=== PATIENT | male | born 1970 | race Caucasian/White ===

== ENCOUNTER 2016-05-28 03:43 | Emergency (ER) | payer OTHER ==
[~2016-05-28] VITALS: Ht 172.7 cm; Wt 103.0 kg
[~2016-05-28 03:43] MED LIST: ASCO500C PO; DULO1CAP3 PO; FISHCAP4 PO; LEVO.05 PO; LIOT50TA2 PO; METF1000 PO; MULTTAB67 PO
[2016-05-28 04:13] VITALS: BP 157/99; PULSE 100; RESP 18; TEMP 98.8; O2SAT 97
[2016-05-28] MEDS ORDERED: LURA1TAB2 PO (04:27)
[2016-05-28] MEDS ORDERED: STRA80CA PO (04:27)
[2016-05-28] MEDS ORDERED: PRAV40TA2 PO (04:27)
[2016-05-28] MEDS ORDERED: MILN50 PO (04:27)
[2016-05-28] MEDS ORDERED: LAMO100 PO (04:27)
[2016-05-28] MEDS ORDERED: MEDR4PAK PO (04:27)
[2016-05-28 05:11] LABS: AUTOMATED NEUTROPHIL # 10.6 TH/MM3 (1.8-7.7); BASOPHIL # 0.1 TH/MM3 (0-0.2); BASOPHIL % 0.6 % (0.0-2.0); EOSINOPHIL # 0.1 TH/MM3 (0-0.4); EOSINOPHIL % 0.4 % (0.0-4.0); HEMATOCRIT 46.8 % (39.0-51.0); LYMPH % 35.2 % (9.0-44.0); LYMPHOCYTE # 6.8 TH/MM3 (1.0-4.8); MEAN CELL VOLUME 85.3 FL (80.0-100.0); MEAN CORPUSCULAR HEMOGLOBIN 28.7 PG (27.0-34.0); MEAN CORPUSCULAR HGB CONC 33.7 % (32.0-36.0); MONO % 8.9 % (0.0-8.0); NEUT % 54.9 % (16.0-70.0); PLATELET COUNT 414 TH/MM3 (150-450); RED BLOOD COUNT 5.49 MIL/MM3 (4.50-5.90); RED CELL DISTRIBUTION WIDTH 13.9 % (11.6-17.2); WHITE BLOOD COUNT 19.3 TH/MM3 (4.0-11.0)
[2016-05-28 05:15] LABS: HEMO FLAGS AUTO DIFF
[2016-05-28 05:24] LABS: AMPHETAMINE, URINE NEG (NEG); BARBITURATES, URINE NEG (NEG); COCAINE, URINE NEG (NEG)
[2016-05-28] MEDS ORDERED: DIAZ10TA PO (05:30)
[2016-05-28 05:45] LABS: ALKALINE PHOSPHATASE 85 U/L (45-117); TOTAL BILIRUBIN ADULT 0.2 MG/DL (0.2-1.0)
[2016-05-28 05:46] LABS: ACETAMINOPHEN LESS THAN 2.0 MCG/ML (10.0-30.0); ALT (GPT) 57 U/L (12-78); ANION GAP 13 MEQ/L (5-15); AST (GOT) 34 U/L (15-37); BLOOD UREA NITROGEN 11 MG/DL (7-18); CHLORIDE 108 MEQ/L (98-107); GLOMERULAR FILTRATION RATE 89 ML/MIN (>89); POTASSIUM 3.6 MEQ/L (3.5-5.1); SODIUM (NA) 142 MEQ/L (136-145)
[2016-05-28] MEDS ORDERED: IBUPROFEN 600 MG TAB PO ONE (06:00)
[2016-05-28] MEDS ORDERED: diphenhydrAMINE HCL 50 MG CAP PO ONE (06:00)
--- NOTE | 2016-05-28 06:06 | PD ---
HPI Chief Complaint: Psychiatric Symptoms Time Seen by Provider: 05:56 Travel History International Travel<30 days: No Contact w/Intl Traveler<30days: No Traveled to known affect area: No History of Present Illness HPI 45-year-old white male presents to emergency department under [place] act by PD. The patient was pulled over for drinking and driving. During the traffic stop the patient stated to the officer that he was feeling depressed and he had intentions of killing himself. The patient has a history of bipolar, anxiety, diabetes, hypothyroidism and hypercholesterolemia. He has had ECT several times in the past. The patient states that he's felt increasingly depressed. His father several years ago followed by his mother passing away last week. He had been seen by his psychiatrist this past week and had a adjustment of his medications. He also has been battling upper back pain. He had seen his doctor yesterday for this as well. The patient goes on to state that when he is discharged he plans on purchasing a handgun and shooting himself. He denies any homicidal ideation. He states that he drank tonight because it makes her feel better. He states that alcohol seems to be 1 of the only things that helps him feel less depressed. He has recently been prescribed Valium. He states actually he has been doubling up on the dose and still does not feel like his helping. He denies any toxic ingestions. No recent illness other than his upper back pain PFSH Past Medical History Narrative Medical Bipolar, anxiety, diabetes, hypothyroidism, hypercholesterolemia Autoimmune Disease: No Bipolar Disorder: Yes Anxiety: Yes Depression: Yes Cancer: No Cardiovascular Problems: No High Cholesterol: Yes Diabetes: Yes Patient Takes Glucophage: Yes Diminished Hearing: No Endocrine: Yes Genitourinary: No Hepatitis: No Hiatal Hernia: No Immune Disorder: No Musculoskeletal: No Neurologic: No Psychiatric: Yes (DEPRESSION) Reproductive: No Respiratory: Yes (SLEEP APNEA) Sickle Cell Disease: No Sleep Apnea: Yes Thyroid Disease: Yes Tetanus Vaccination: < 5 Years Past Surgical History Body Medical Devices: NONE Other Surgery: Yes (benign cyst removed from head) Social History Alcohol Use: Yes (when I feel depressed) Tobacco Use: No (never) Substance Use: No Allergies-Medications (Allergen,Severity, Reaction): Coded Allergies: Codeine (Verified Allergy, Unknown, Rash, 12/5/16) intramuscular route only Reported Meds & Prescriptions Reported Meds & Active Scripts Active Reported Diazepam 10 Mg Tab 15 Mg PO BID PRN Pravastatin 40 Mg Tab 40 Mg PO DAILY Strattera (Atomoxetine) 80 Mg Cap 80 Mg PO DAILY Savella (Milnacipran) 50 Mg Tab 50 Mg PO BID Latuda (Lurasidone) 60 Mg Tab 60 Mg PO HS Lamictal (Lamotrigine) 100 Mg Tab 100 Mg PO BID Medrol Dosepak (Methylprednisolone) 4 Mg Dspk 4 Mg PO DIRECTED Per Pharmacist direction Fish Oil + D3 (Fish Oil-Cholecalciferol) 1,200-1,000 Mg-Unit Cap 1 Cap PO HS Metformin (Metformin HCl) 1,000 Mg Tab 1,000 Mg PO BIDPC With meals Synthroid (Levothyroxine Sodium) 50 Mcg Tab 50 Mcg PO DAILY Multiple Vitamin 1 Tab 1 Tab PO DAILY Review of Systems Except as stated in HPI: all other systems reviewed are Neg HENT: Positive: Neck Stiffness, Neck Pain Musculoskeletal: Positive: Myalgias, Cramping, Pain, No: Arthralgias, Limited ROM, Weakness, Edema Psychiatric: Positive: Anxiety, Depression, Mood Disorder, Substance Abuse, No : Disorder of Thought, Homicidal Ideation Physical Exam Narrative GENERAL: Well-nourished, well-developed patient. SKIN: Warm and dry. HEAD: Normocephalic and atraumatic. EYES: No scleral icterus. No injection or drainage. ENT: No nasal drainage noted. Mucous membranes pink. Airway patent. NECK: Supple, trachea midline. Moves head freely without obvious discomfort. CARDIOVASCULAR: Regular rate and rhythm without murmurs, gallops, or rubs. RESPIRATORY: Breath sounds equal bilaterally. No accessory muscle use. GASTROINTESTINAL: Abdomen soft, non-tender, nondistended. EXTREMITIES: No cyanosis or edema. BACK: Nontender without obvious deformity. No CVA tenderness. Patient has right periscapular muscle tenderness and spasm. NEURO: Patient is alert and oriented. no sensorimotor deficits. Nonfocal. Normal speech. PSYCH: No delusions. No auditory or visual hallucinations. Poor coping skills. Poor insight and judgment Data Data Last Documented VS Vital Signs Date Time Temp Pulse Resp B/P Pulse Ox O2 Delivery O2 Flow Rate FiO2 05/28/16 04:13 98.8 100 18 157/99 97 Orders Complete Blood Count With Diff (05/28/16 04:23) Comprehensive Metabolic Panel (05/28/16 04:23) Psych Screen (05/28/16 04:23) Drug Screen, Random Urine (05/28/16 04:23) Alcohol (Ethanol) (05/28/16 04:23) Salicylates (Aspirin) (05/28/16 04:23) Tylenol (Acetaminophen) (05/28/16 04:23) Ibuprofen (Motrin) (05/28/16 06:00) Diphenhydramine (Benadryl) (05/28/16 06:00) Labs Laboratory Tests Test 05/28/16 04:55 White Blood Count 19.3 TH/MM3 Red Blood Count 5.49 MIL/MM3 Hemoglobin 15.8 GM/DL Hematocrit 46.8 % Mean Corpuscular Volume 85.3 FL Mean Corpuscular Hemoglobin 28.7 PG Mean Corpuscular Hemoglobin 33.7 % Concent Red Cell Distribution Width 13.9 % Platelet Count 414 TH/MM3 Mean Platelet Volume 7.5 FL Neutrophils (%) (Auto) 54.9 % Lymphocytes (%) (Auto) 35.2 % Monocytes (%) (Auto) 8.9 % Eosinophils (%) (Auto) 0.4 % Basophils (%) (Auto) 0.6 % Neutrophils # (Auto) 10.6 TH/MM3 Lymphocytes # (Auto) 6.8 TH/MM3 Monocytes # (Auto) 1.7 TH/MM3 Eosinophils # (Auto) 0.1 TH/MM3 Basophils # (Auto) 0.1 TH/MM3 CBC Comment AUTO DIFF Sodium Level 142 MEQ/L Potassium Level 3.6 MEQ/L Chloride Level 108 MEQ/L Carbon Dioxide Level 21.0 MEQ/L Anion Gap 13 MEQ/L Blood Urea Nitrogen 11 MG/DL Creatinine 0.92 MG/DL Estimat Glomerular Filtration 89 ML/MIN Rate Random Glucose 114 MG/DL Calcium Level 8.8 MG/DL Total Bilirubin 0.2 MG/DL Aspartate Amino Transf 34 U/L (AST/SGOT) Alanine Aminotransferase 57 U/L (ALT/SGPT) Alkaline Phosphatase 85 U/L Total Protein 8.5 GM/DL Albumin 4.2 GM/DL Salicylates Level 2.2 MG/DL Urine Opiates Screen NEG Acetaminophen Level LESS THAN 2.0 MCG/ML Urine Barbiturates Screen NEG Urine Amphetamines Screen NEG Urine Benzodiazepines Screen POS Urine Cocaine Screen NEG Urine Cannabinoids Screen NEG Ethyl Alcohol Level 33 MG/DL MDM Medical Decision Making Medical Screen Exam Complete: Yes Emergency Medical Condition: Yes Medical Record Reviewed: Yes Interpretation(s) Laboratory Tests Test 05/28/16 04:55 White Blood Count 19.3 TH/MM3 Red Blood Count 5.49 MIL/MM3 Hemoglobin 15.8 GM/DL Hematocrit 46.8 % Mean Corpuscular Volume 85.3 FL Mean Corpuscular Hemoglobin 28.7 PG Mean Corpuscular Hemoglobin 33.7 % Concent Red Cell Distribution Width 13.9 % Platelet Count 414 TH/MM3 Mean Platelet Volume 7.5 FL Neutrophils (%) (Auto) 54.9 % Lymphocytes (%) (Auto) 35.2 % Monocytes (%) (Auto) 8.9 % Eosinophils (%) (Auto) 0.4 % Basophils (%) (Auto) 0.6 % Neutrophils # (Auto) 10.6 TH/MM3 Lymphocytes # (Auto) 6.8 TH/MM3 Monocytes # (Auto) 1.7 TH/MM3 Eosinophils # (Auto) 0.1 TH/MM3 Basophils # (Auto) 0.1 TH/MM3 CBC Comment AUTO DIFF Sodium Level 142 MEQ/L Potassium Level 3.6 MEQ/L Chloride Level 108 MEQ/L Carbon Dioxide Level 21.0 MEQ/L Anion Gap 13 MEQ/L Blood Urea Nitrogen 11 MG/DL Creatinine 0.92 MG/DL Estimat Glomerular Filtration 89 ML/MIN Rate Random Glucose 114 MG/DL Calcium Level 8.8 MG/DL Total Bilirubin 0.2 MG/DL Aspartate Amino Transf 34 U/L (AST/SGOT) Alanine Aminotransferase 57 U/L (ALT/SGPT) Alkaline Phosphatase 85 U/L Total Protein 8.5 GM/DL Albumin 4.2 GM/DL Salicylates Level 2.2 MG/DL Urine Opiates Screen NEG Acetaminophen Level LESS THAN 2.0 MCG/ML Urine Barbiturates Screen NEG Urine Amphetamines Screen NEG Urine Benzodiazepines Screen POS Urine Cocaine Screen NEG Urine Cannabinoids Screen NEG Ethyl Alcohol Level 33 MG/DL Differential Diagnosis MDM: High Differential diagnoses: Schizophrenia, schizoaffective disorder, bipolar, anxiety, depression, adjustment reaction, mood disorder NOS, ODD, depressive disorder NOS, dementia, dementia with agitation, psychosis NOS, substance induced mood disorder, intermittent explosive disorder, Asperger syndrome, infection,electrolyte abnormality, malingering. Narrative Course Mental health screening discussed with the patient. Psychiatric screen ordered. The patient been medically cleared. The patient has requested something for his anxiety and right upper back pain and spasm. He is given Motrin 600 mg and Benadryl 50 mg by mouth. I explained to the patient that I do not want to give him any additional mind altering medications because the psychiatrist will begin his morning to see him. I will like him to be lucid for his history and exam. This is bipolar-depressed, back spasms, intoxication Diagnosis Primary Impression: Bipolar affect, depressed Qualified Code: F31.4 - Bipolar disorder, current episode depressed, severe, without psychotic features Additional Impressions: Back muscle spasm Intoxication by drug Qualified Code: F19.929 - Intoxication by drug, with unspecified complication Condition: Stable Ra Grimaldo May 28, 2016 06:06
[2016-05-28 06:42] LABS: PLATELET ESTIMATE SMEAR NORMAL (NORMAL); PLATELET MORPHOLOGY NORMAL (NORMAL); SCAN/DIFF AUTO DIFF CONFIRMED
[2016-05-28 08:11] VITALS: BP 128/78; PULSE 86; RESP 18; O2SAT 99
--- NOTE | 2016-05-28 10:49 | PD.CONS ---
Provisional Diagnosis Admission Date Ronks I. Alcohol-induced mood disorder, alcohol use disorder, history of bipolar disorder Ronks II. Deferred Ronks III. DM, sleep apnea Ronks IV. Mother recently Ronks V. 55 History of Present Illness Service Psychiatry Consult Requested By Primary Care Physician Non-Staff HPI The patient is a 45-year-old man, domiciled alone in [place], unemployed, supported by [facility], never , with psychiatric history of bipolar disorder, 2 previous psychiatric hospitalizations, he was seen here at [facility] in 2011 for adjustment disorder, no previous suicidal attempts, he has been getting ECT before, he sees outpatient psychiatrist Dr. Craig in [facility], he is on Latuda 60 mg, Lamictal 100 mg twice a day, diazepam 50 mg, he has medical history of diabetes mellitus, hypothyroidism, who presents to emergency department under [place] act by PD. The patient was pulled over for drinking and driving. As per [place] act, During the traffic stop the patient stated to the officer that he was feeling depressed and he had intentions of killing himself. The patient states that he's felt increasingly depressed. His father several years ago followed by his mother passing away last week. Initial BAL was 33, patient was also positive for benzodiazepines. On psychiatric evaluation this morning patient is calm, cooperative and pleasant , clinically sober. Patient explains that last night he was drinking some alcohol with some friends and he decided to drive back home and was caught by police. Patient says that he has been feeling depressed secondary to his mother about week ago, but he reports good mood at this moment. Patient denies suicidal or homicidal ideation, he denies visual and auditory hallucinations. Patient has a extensive history of dealing with depression, he says that he has 3 courses of ECT in [place], but they have been ineffective. He said he has been compliant and is stable with current psychotropic regimen. He sees Dr. Craig once a month, the last that his son was last . Patient reports taking alcohol socially, one or 2 times per month, getting drunk is in usual for him. He denies the use of illegal drugs. Patient is fully oriented 3, no agitation, no aggressive behavior, no paranoia , no delusions are observed or reported. Review of Systems Constitutional: DENIES: Diaphoretic episodes, Fatigue, Fever, Weight gain, Weight loss, Chills, Dizziness, Change in appetite, Night Sweats Endocrine: DENIES: Heat/cold intolerance, Polydipsia, Polyuria, Polyphagia Eyes: DENIES: Blurred vision, Diplopia, Eye inflammation, Eye pain, Vision loss , Photosensitivity, Double Vision Ears, nose, mouth, throat: DENIES: Tinnitus, Hearing loss, Vertigo, Nasal discharge, Oral lesions, Throat pain, Hoarseness, Ear Pain, Running Nose, Epistaxis, Sinus Pain, Toothache, Odynophagia Respiratory: DENIES: Apneas, Cough, Snoring, Wheezing, Hemoptysis, Sputum production, Shortness of breath Cardiovascular: DENIES: Chest pain, Palpitations, Syncope, Dyspnea on Exertion , PND, Lower Extremity Edema, Orthopnea, Claudication Gastrointestinal: DENIES: Abdominal pain, Black stools, Bloody stools, Constipation, Diarrhea, Nausea, Vomiting, Difficulty Swallowing, Anorexia Integumentary: DENIES: Abnormal pigmentation, Nail changes, Pruritus, Rash Immunologic/allergic: DENIES: Eczema, Urticaria Neurologic: DENIES: Abnormal gait, Headache, Localized weakness, Paresthesias, Seizures, Speech Problems, Tremor, Poor Balance Psychiatric: DENIES: Anxiety, Confusion, Mood changes, Depression, Hallucinations, Agitation, Suicidal Ideation, Homicidal Ideation, Delusions Past Family Social History Coded Allergies: Codeine (Verified Allergy, Unknown, Rash, 01/18/16) intramuscular route only Reported Medications Diazepam 10 Mg Tab15 Mg PO BID PRN (ANXIETY) Ref 0 05/28/16 Pravastatin 40 Mg Tab40 Mg PO DAILY #30 TAB Ref 0 05/28/16 Atomoxetine (Strattera)80 Mg Cap80 Mg PO DAILY #30 CAP Ref 0 05/28/16 Milnacipran (Savella)50 Mg Tab50 Mg PO BID #60 TAB Ref 0 05/28/16 Lurasidone (Latuda)60 Mg Tab60 Mg PO HS #30 TAB Ref 0 05/28/16 Lamotrigine (Lamictal)100 Mg [id number] Mg PO BID #60 TAB Ref 0 05/28/16 Methylprednisolone Dosepak (Medrol Dosepak)4 Mg Dspk4 Mg PO DIRECTED #1 DSPK Ref 0 Per Pharmacist direction 05/28/16 Fish Oil-Cholecalciferol (Fish Oil + D3)1,200-1,000 Mg-Unit Cap1 Cap PO HS #30 CAP Ref 0 01/18/16 Metformin 1,000 Mg Tab1,000 Mg PO BIDPC #60 TAB Ref 0 With meals 01/18/16 Levothyroxine (Synthroid)50 Mcg Tab50 Mcg PO DAILY #30 TAB Ref 0 01/18/16 Multiple Vitamin 1 Tab1 Tab PO DAILY Ref 0 01/18/16 Discontinued Reported Medications Ascorbic Acid (Vitamin C)500 Mg [id number] Mg PO HS Ref 0 01/18/16 Liothyronine 50 Mcg Tab50 Mcg PO DAILY #30 TAB Ref 0 01/18/[address] 60 Mg Capdr60 Mg PO DAILY #30 CAP Ref 0 01/18/16 Family History He denies Social History Patient was born and raised in [place], he has been living in [place] since 2007, he lives alone in [place], he never remarried, he doesn't have kids, is unemployed, supported by [facility], he has a bachelor degree Physical Exam On physical exam, no alcohol withdrawal, no EPS, no tremors, no rigidity, no stiffness, no psychomotor retardation or agitation present Vital Signs Vital Signs Date Time Temp Pulse Resp B/P Pulse Ox O2 Delivery O2 Flow Rate FiO2 05/28/16 08:11 86 18 128/78 99 Room Air 05/28/16 04:13 98.8 Lab Results BAL 33, toxicology positive for benzodiazepines Mental Status Examination Appearance Overweight man, good hygiene, in [facility], age appearing, calm , cooperative and pleasant Speech: Unremarkable Orientation: x3 Memory: Unremarkable Thought Process: Logical Hallucination Type: None Suicidal Ideation: No Previous Suicide Attempts: No Homicidal Ideation: No Previous Homicide Attempts: No Insight: Good Judgment: WNL Affect: Good Mood: Appropriate Motor Activity: Normal gait Assessment & Plan Problem List: (1) Alcohol abuse with alcohol-induced mood disorder Assessment & Plan: On psychiatric evaluation this morning the patient does not present any significant evidence of depression, anxiety, carmen or psychosis. Patient denies suicidal or homicidal ideation, he denies visual and auditory hallucinations. Patient endorses some symptoms of mild to moderate depression mostly related with recent of his mother, but he says that he has been coping okay with this. Patient is future oriented, goal directed, logical, coherent and relevant. He definitely does not meet criteria for psychiatric admission at this moment. He can continue his psychiatric care as an outpatient with Dr. Craig in [place]. Continue current psychotropics. Extensive support, motivation psycho education. Dixon act will be lifted. ICD Code: F10.14 Assessment & Plan Estimated LOS: Byron Fuentes MD May 28, 2016 10:49
== END 2016-05-28 09:39 | disposition short-term general hospital (02) ==
LOC: NEPD 03:43
DX: F31.4 Bipolar disorder, current episode depressed, severe, without psychotic features (principal); M62.830 Muscle spasm of back; F19.929 Other psychoactive substance use, unspecified with intoxication, unspecified; F10.14 Alcohol abuse with alcohol-induced mood disorder; E11.9 Type 2 diabetes mellitus without complications; E03.9 Hypothyroidism, unspecified; E78.00 Pure hypercholesterolemia, unspecified; G47.30 Sleep apnea, unspecified; Z79.84 Long term (current) use of oral hypoglycemic drugs; Z86.59 Personal history of other mental and behavioral disorders
CPT/HCPCS: 80053; 80307; 85025; 99285; Q0163

== ENCOUNTER 2016-08-17 15:28 | Emergency (ER) | payer OTHER ==
[~2016-08-17 15:28] MED LIST changes: -ASCO500C PO; +DIAZ10TA PO; -DULO1CAP3 PO; +LAMO100 PO; -LIOT50TA2 PO; +LURA1TAB2 PO; +MEDR4PAK PO; +MILN50 PO; +PRAV40TA2 PO; +STRA80CA PO
--- NOTE | 2016-08-17 15:37 | PD ---
Physical Exam Time Seen by Provider: 15:37 Narrative Pt presents to the ED for evaluation of anxiety. States he was here at the hospital for a depression support group. States he has had SI over the past several days but has made no attempts to harm himself. Denies HI. States he has been taking xanax until he ran out and took an old prescription of diazepam yesterday. VSS. Awaiting bed placement. MDM Supervised Visit with PHIL: Roseanna Eli Aug 17, 2016 15:37
[2016-08-17 15:47] VITALS: BP 130/79; PULSE 97; RESP 20; TEMP 98; O2SAT 99
[2016-08-17 17:04] VITALS: BP 121/70; PULSE 91; RESP 18; O2SAT 100
[2016-08-17] MEDS ORDERED: LAMO100 PO (17:20)
[2016-08-17] MEDS ORDERED: LORazepam 1 MG TAB PO PRN (17:30)
[2016-08-17] MEDS ORDERED: LORazepam 2 MG TAB PO PRN (17:30)
[2016-08-17] MEDS ORDERED: LORazepam 2 MG/ML VIAL IV PUSH PRN ×4 (17:30)
[2016-08-17] MEDS ORDERED: FLUMAZENIL 0.5 MG/5 ML VIAL IV PUSH PRN (17:30)
[2016-08-17 18:04] LABS: BASOPHIL # 0.1 TH/MM3 (0-0.2); BASOPHIL % 1.2 % (0.0-2.0); EOSINOPHIL # 0.2 TH/MM3 (0-0.4); EOSINOPHIL % 2.2 % (0.0-4.0); HEMATOCRIT 46.2 % (39.0-51.0); HEMO FLAGS DIFF FINAL; LYMPH % 44.3 % (9.0-44.0); LYMPHOCYTE # 4.5 TH/MM3 (1.0-4.8); MEAN CELL VOLUME 85.4 FL (80.0-100.0); MEAN CORPUSCULAR HEMOGLOBIN 27.8 PG (27.0-34.0); MEAN CORPUSCULAR HGB CONC 32.5 % (32.0-36.0); MONO % 12.6 % (0.0-8.0); NEUT % 39.7 % (16.0-70.0); PLATELET COUNT 423 TH/MM3 (150-450); RED BLOOD COUNT 5.41 MIL/MM3 (4.50-5.90); RED CELL DISTRIBUTION WIDTH 13.7 % (11.6-17.2)
[2016-08-17 18:06] VITALS: BP 119/72; PULSE 84; RESP 18; O2SAT 100
[2016-08-17 18:26] LABS: ANION GAP 15 MEQ/L (5-15); AST (GOT) 31 U/L (15-37); BICARBONATE 18.7 MEQ/L (21.0-32.0); BLOOD UREA NITROGEN 16 MG/DL (7-18); CHLORIDE 103 MEQ/L (98-107); GLOMERULAR FILTRATION RATE 57 ML/MIN (>89); POTASSIUM 3.2 MEQ/L (3.5-5.1); SODIUM (NA) 137 MEQ/L (136-145)
[2016-08-17 18:27] LABS: ALT (GPT) 70 U/L (12-78)
[2016-08-17 18:29] LABS: ALKALINE PHOSPHATASE 103 U/L (45-117); TOTAL BILIRUBIN ADULT 0.3 MG/DL (0.2-1.0)
--- NOTE | 2016-08-17 18:31 | PD ---
HPI Chief Complaint: Anxiety Time Seen by Provider: 18:00 Travel History International Travel<30 days: No Contact w/Intl Traveler<30days: No Traveled to known affect area: No History of Present Illness HPI Patient is a 46-year-old male presenting voluntarily to the emergency department for psychiatric evaluation. Patient states that he is on Xanax for anxiety, he ran out a few days ago so he has been using Valium that he had left over. He reports being at a meeting this afternoon and approximately 2:45p when he developed this overwhelming sense of anxiety. Patient reports a history of panic attacks, he states that he feels similar to his previous attacks. He denies any nausea, vomiting, shortness of breath, palpitations. Denies any suicidal or homicidal ideations, he reports a history of type 2 diabetes, bipolar 2 disorder. PFSH Past Medical History AAA: No ADD: No ADHD: No Alzheimer's Disease: No Anemia: No Arthritis: No Asthma: No Atrial Fibrillation: No Autoimmune Disease: No Blood Disorders: No Bipolar Disorder: Yes Anxiety: Yes Depression: Yes Heart Rhythm Problems: No Cancer: No Cardiac Catheterization: No Cardiomyopathy: No Cardiovascular Problems: No Cerebral Palsy: No High Cholesterol: No Chemotherapy: No Chest Pain: No Congestive Heart Failure: No Cirrhosis: No COPD: No Cerebrovascular Accident: No Coronary Artery Disease: No Cystic Fibrosis: No Dementia: No Developmental Delay: No Diabetes: Yes Patient Takes Glucophage: Yes (METFORMIN 1000MG TWICE A DAY) Dialysis: No Diminished Hearing: No Diverticulitis: No Deep Vein Thrombosis: No Endocrine: No Fibromyalgia: No Gastrointestinal Disorders: No Genetic Disorder: No GERD: No Glaucoma: No Gout: No Genitourinary: No Headaches: No Hepatitis: No Hiatal Hernia: No Heparin Induced Thrombocytopen: No Herniated Disk: No Hypertension: No Immune Disorder: No Inguinal Hernia: No Implanted Vascular Access Dvce: No Insomnia: No Kidney Stones: No Medical other: No Musculoskeletal: No Neurologic: No Parkinson's Disease: No Psychiatric: No Reproductive: No Respiratory: No Resp. Syncytial Virus (RSV): No Integumentary: No Immunizations Current: No Migraines: No Myocardial Infarction: No Pancreatitis: No Pneumonia: No Radiation Therapy: No Renal Failure: No Schizophrenia: No Seizures: No Shingles: No Sickle Cell Disease: No Sleep Apnea: No Thyroid Disease: No Triglycerides - High: No Ulcer: No Tetanus Vaccination: > 5 Years Influenza Vaccination: Yes Past Surgical History Abdominal Aneurysm Repair: No Abdominal Surgery: No AICD: No Appendectomy: No Arteriovenous Shunt: No Body Medical Devices: NONE Cardiac Surgery: No Cholecystectomy: No Coronary Artery Bypass Graft: No Coronary Stent: No Ear Surgery: No Endocrine Surgery: No Eye Surgery: No Genitourinary Surgery: No Gynecologic Surgery: No Insulin Pump: No Joint Replacement: No Mastectomy: No Neurologic Surgery: No Oral Surgery: No Pacemaker: No Prostatectomy: No Thoracic Surgery: No Tonsillectomy: No Tympanostomy Tube: No Valve Replacement: No Other Surgery: No Family History Family Breast Cancer: No Family Myocardial Infarction: No Family Hypercholesterolemia: No Social History Alcohol Use: No Tobacco Use: No Substance Use: No Allergies-Medications (Allergen,Severity, Reaction): Coded Allergies: Codeine (Verified Allergy, Unknown, Rash, 01/18/16) intramuscular route only Reported Meds & Prescriptions Reported Meds & Active Scripts Active Reported Xanax (Alprazolam) 0.5 Mg Tab 0.5 Mg PO Q8H PRN Lamictal (Lamotrigine) 100 Mg Tab 100 Mg PO TID Diazepam 10 Mg Tab 15 Mg PO BID PRN Pravastatin 40 Mg Tab 40 Mg PO DAILY Fish Oil + D3 (Fish Oil-Cholecalciferol) 1,200-1,000 Mg-Unit Cap 1 Cap PO HS Metformin (Metformin HCl) 1,000 Mg Tab 1,000 Mg PO BIDPC With meals Synthroid (Levothyroxine Sodium) 50 Mcg Tab 50 Mcg PO DAILY Multiple Vitamin 1 Tab 1 Tab PO DAILY Review of Systems Except as stated in HPI: all other systems reviewed are Neg Cardiovascular: Positive: Diaphoresis, No: Chest Pain or Discomfort Respiratory: No: Shortness of Breath Neurologic: No: Weakness, Dizziness Psychiatric: Positive: Anxiety, Mood Disorder Physical Exam Narrative GENERAL: Well-developed, well-nourished, alert male. SKIN: Warm and dry. Diaphoretic HEAD: Atraumatic. Normocephalic. EYES: Pupils equal and round. No scleral icterus. No injection or drainage. ENT: No nasal bleeding or discharge. Mucous membranes pink and moist. NECK: Trachea midline. No JVD. CARDIOVASCULAR: Regular rate and rhythm. RESPIRATORY: No accessory muscle use. Clear to auscultation. Breath sounds equal bilaterally. GASTROINTESTINAL: Abdomen soft, non-tender, nondistended. Hepatic and splenic margins not palpable. MUSCULOSKELETAL: Extremities without clubbing, cyanosis, or edema. No obvious deformities. NEUROLOGICAL: Awake and alert. No obvious cranial nerve deficits. Motor grossly within normal limits. Five out of 5 muscle strength in the arms and legs. Normal speech. PSYCHIATRIC: Anxious mood and affect; insight and judgment normal. Data Data Last Documented VS Vital Signs Date Time Temp Pulse Resp B/P Pulse Ox O2 Delivery O2 Flow Rate FiO2 08/17/16 18:06 84 18 119/72 100 Room Air 08/17/16 15:47 98.0 Orders Psych Screen (08/17/16 16:42) Complete Blood Count With Diff (08/17/16 17:12) Comprehensive Metabolic Panel (08/17/16 17:12) Drug Screen, Random Urine (08/17/16 17:12) Diet Regular Basic (08/17/16 Dinner) Alcohol Withdrawal Asmt-Ciwa ONCE (08/17/16 17:27) Flumazenil Inj (Romazicon Inj) (08/17/16 17:30) Lorazepam (Ativan) (08/17/16 17:30) Lorazepam Inj (Ativan Inj) (08/17/16 17:30) Lorazepam (Ativan) (08/17/16 17:30) Lorazepam Inj (Ativan Inj) (08/17/16 17:30) Lorazepam Inj (Ativan Inj) (08/17/16 17:30) Lorazepam Inj (Ativan Inj) (08/17/16 17:30) Potassium Chloride (Kcl) (08/17/16 19:30) Electrocardiogram (08/17/16 15:35) Labs Laboratory Tests Test 08/17/16 08/17/16 08/17/16 17:30 17:38 20:02 Sodium Level 137 MEQ/L Potassium Level 3.2 MEQ/L Chloride Level 103 MEQ/L Carbon Dioxide Level 18.7 MEQ/L Anion Gap 15 MEQ/L Blood Urea Nitrogen 16 MG/DL Creatinine 1.34 MG/DL Estimat Glomerular Filtration 57 ML/MIN Rate Random Glucose 91 MG/DL Calcium Level 10.0 MG/DL Total Bilirubin 0.3 MG/DL Aspartate Amino Transf 31 U/L (AST/SGOT) Alanine Aminotransferase 70 U/L (ALT/SGPT) Alkaline Phosphatase 103 U/L Total Protein 8.4 GM/DL Albumin 4.2 GM/DL White Blood Count 10.0 TH/MM3 Red Blood Count 5.41 MIL/MM3 Hemoglobin 15.0 GM/DL Hematocrit 46.2 % Mean Corpuscular Volume 85.4 FL Mean Corpuscular Hemoglobin 27.8 PG Mean Corpuscular Hemoglobin 32.5 % Concent Red Cell Distribution Width 13.7 % Platelet Count 423 TH/MM3 Mean Platelet Volume 7.8 FL Neutrophils (%) (Auto) 39.7 % Lymphocytes (%) (Auto) 44.3 % Monocytes (%) (Auto) 12.6 % Eosinophils (%) (Auto) 2.2 % Basophils (%) (Auto) 1.2 % Neutrophils # (Auto) 4.0 TH/MM3 Lymphocytes # (Auto) 4.5 TH/MM3 Monocytes # (Auto) 1.3 TH/MM3 Eosinophils # (Auto) 0.2 TH/MM3 Basophils # (Auto) 0.1 TH/MM3 CBC Comment DIFF FINAL Differential Comment Urine Opiates Screen NEG Urine Barbiturates Screen NEG Urine Amphetamines Screen NEG Urine Benzodiazepines Screen POS Urine Cocaine Screen NEG Urine Cannabinoids Screen NEG MDM Medical Decision Making Medical Screen Exam Complete: Yes Emergency Medical Condition: Yes Interpretation(s) Laboratory Tests Test 08/17/16 08/17/16 17:30 17:38 Sodium Level 137 MEQ/L Potassium Level 3.2 MEQ/L Chloride Level 103 MEQ/L Carbon Dioxide Level 18.7 MEQ/L Anion Gap 15 MEQ/L Blood Urea Nitrogen 16 MG/DL Creatinine 1.34 MG/DL Estimat Glomerular Filtration 57 ML/MIN Rate Random Glucose 91 MG/DL Calcium Level 10.0 MG/DL Total Bilirubin 0.3 MG/DL Aspartate Amino Transf 31 U/L (AST/SGOT) Alanine Aminotransferase 70 U/L (ALT/SGPT) Alkaline Phosphatase 103 U/L Total Protein 8.4 GM/DL Albumin 4.2 GM/DL White Blood Count 10.0 TH/MM3 Red Blood Count 5.41 MIL/MM3 Hemoglobin 15.0 GM/DL Hematocrit 46.2 % Mean Corpuscular Volume 85.4 FL Mean Corpuscular Hemoglobin 27.8 PG Mean Corpuscular Hemoglobin 32.5 % Concent Red Cell Distribution Width 13.7 % Platelet Count 423 TH/MM3 Mean Platelet Volume 7.8 FL Neutrophils (%) (Auto) 39.7 % Lymphocytes (%) (Auto) 44.3 % Monocytes (%) (Auto) 12.6 % Eosinophils (%) (Auto) 2.2 % Basophils (%) (Auto) 1.2 % Neutrophils # (Auto) 4.0 TH/MM3 Lymphocytes # (Auto) 4.5 TH/MM3 Monocytes # (Auto) 1.3 TH/MM3 Eosinophils # (Auto) 0.2 TH/MM3 Basophils # (Auto) 0.1 TH/MM3 CBC Comment DIFF FINAL Differential Comment Vital Signs Date Time Temp Pulse Resp B/P Pulse Ox O2 Delivery O2 Flow Rate FiO2 08/17/16 18:06 84 18 119/72 100 Room Air 08/17/16 17:04 91 18 121/70 100 Room Air 08/17/16 15:47 98.0 97 20 130/79 99 Room Air Differential Diagnosis Mood disorder versus substance abuse versus anxiety versus panic disorder versus electrolyte abnormality versus other Narrative Course Patient's a 46-year-old male presenting voluntarily due to anxiety and being out of his Xanax. Per RNs in [facility] they contacted the pharmacy and patient had a medication refill available for him 3 days ago. When patient was asked why he didn't pick it up he stated that he didn't have time. Patient had been taking Xanax then he started using Valium after he ran out, it doesn't appear symptoms are related to withdrawal because he hasn't been without a benzodiazepine his symptoms today are consistent with his previous panic attacks. Mental health screening discussed with the patient. Psychiatric screen ordered. CBC is unremarkable Chemistry with potassium of 3.2, oral replacement ordered. CIWA protocol ordered per Dr. Aly Urine drug screen is positive for benzos Patient is medically cleared for psychiatric evaluation at this time. Diagnosis Primary Impression: Medical clearance for psychiatric admission Condition: Stable Alea Pappas Aug 17, 2016 18:30
[2016-08-17] MEDS ORDERED: ALPR.5 PO (18:47)
[2016-08-17] MEDS ORDERED: POTASSIUM CHLORIDE 10 MEQ CONTROLLED RELEASE TAB PO ONE (19:30)
[2016-08-17 20:43] LABS: AMPHETAMINE, URINE NEG (NEG); BARBITURATES, URINE NEG (NEG); COCAINE, URINE NEG (NEG)
--- NOTE | 2016-08-18 17:42 | EKG ---
Date Performed: 08/17/2016 Time Performed: 15:35:04 PTAGE: 46 years EKG: Sinus rhythm PROBABLE INFERIOR MYOCARDIAL INFARCTION ABNORMAL ECG NO PREVIOUS TRACING DOCTOR: Jeri Pool Interpretating Date/Time 08/18/2016 17:37:11
== END 2016-08-17 22:04 | disposition home or self-care (01) ==
LOC: NEPJ 15:28
DX: F41.8 Other specified anxiety disorders (principal); F31.9 Bipolar disorder, unspecified; E11.9 Type 2 diabetes mellitus without complications; Z79.84 Long term (current) use of oral hypoglycemic drugs; R45.851 Suicidal ideations
CPT/HCPCS: 80053; 80307; 85025; 93005; 96372; 99284; J2060

== ENCOUNTER 2017-02-11 20:49 | Emergency (ER) | payer OTHER ==
[~2017-02-11] VITALS: Ht 177.8 cm; Wt 98.0 kg
[~2017-02-11 20:49] MED LIST changes: +ALPR.5 PO; -LURA1TAB2 PO; -MEDR4PAK PO; -MILN50 PO; -STRA80CA PO
[2017-02-11 21:06] VITALS: BP 137/86; PULSE 97; RESP 18; TEMP 98.6; O2SAT 99
--- NOTE | 2017-02-11 21:16 | PD ---
HPI Chief Complaint: Psychiatric Symptoms Time Seen by Provider: 21:05 Travel History International Travel<30 days: No Contact w/Intl Traveler<30days: No Traveled to known affect area: No History of Present Illness HPI Patient is a 46 year old male who presents to emergency room under a Dixon act for evaluation of anxiety attack. Patient reports that he began having anxiety attack around 7:30 PM tonight, reports that during his anxiety attack, he had thoughts of committing suicide, reports no active plans for suicide. Patient reports that he is unsure why he is so anxious. Denies use of drugs, reports that he does drink alcohol occasionally. Reports no history of suicide attempts in the past. Patient currently contracts for [employer] Past Medical History AAA: No ADD: No ADHD: No Alzheimer's Disease: No Anemia: No Arthritis: No Asthma: No Atrial Fibrillation: No Autoimmune Disease: No Blood Disorders: No Bipolar Disorder: Yes Anxiety: Yes Depression: Yes Heart Rhythm Problems: No Cancer: No Cardiac Catheterization: No Cardiomyopathy: No Cardiovascular Problems: No Cerebral Palsy: No High Cholesterol: No Chemotherapy: No Chest Pain: No Congestive Heart Failure: No Cirrhosis: No COPD: No Cerebrovascular Accident: No Coronary Artery Disease: No Cystic Fibrosis: No Dementia: No Developmental Delay: No Diabetes: Yes Dialysis: No Diminished Hearing: No Diverticulitis: No Deep Vein Thrombosis: No Endocrine: No Fibromyalgia: No Gastrointestinal Disorders: No Genetic Disorder: No GERD: No Glaucoma: No Gout: No Genitourinary: No Headaches: No Hepatitis: No Hiatal Hernia: No Heparin Induced Thrombocytopen: No Herniated Disk: No Hypertension: No Immune Disorder: No Inguinal Hernia: No Implanted Vascular Access Dvce: No Insomnia: No Kidney Stones: No Musculoskeletal: No Neurologic: No Parkinson's Disease: No Psychiatric: No Reproductive: No Respiratory: No Resp. Syncytial Virus (RSV): No Integumentary: No Immunizations Current: No Migraines: No Myocardial Infarction: No Pancreatitis: No Pneumonia: No Radiation Therapy: No Renal Failure: No Schizophrenia: No Seizures: No Shingles: No Sickle Cell Disease: No Sleep Apnea: No Thyroid Disease: No Triglycerides - High: No Ulcer: No Past Surgical History Abdominal Aneurysm Repair: No Abdominal Surgery: No AICD: No Appendectomy: No Arteriovenous Shunt: No Body Medical Devices: NONE Cardiac Surgery: No Cholecystectomy: No Coronary Artery Bypass Graft: No Coronary Stent: No Ear Surgery: No Endocrine Surgery: No Eye Surgery: No Genitourinary Surgery: No Gynecologic Surgery: No Insulin Pump: No Joint Replacement: No Mastectomy: No Neurologic Surgery: No Oral Surgery: No Pacemaker: No Prostatectomy: No Thoracic Surgery: No Tonsillectomy: No Tympanostomy Tube: No Valve Replacement: No Other Surgery: No Family History Family Hypercholesterolemia: No Social History Alcohol Use: No Tobacco Use: No Substance Use: No Allergies-Medications (Allergen,Severity, Reaction): Coded Allergies: codeine (Unverified Allergy, Unknown, Rash, 02/11/17) intramuscular route only Reported Meds & Prescriptions Reported Meds & Active Scripts Active Reported Maprotiline (Maprotiline HCl) 50 Mg Tab 50 Mg PO DIRECTED Hydroxyzine Pamoate 50 Mg Cap 50 Mg PO BID Fluvoxamine (Fluvoxamine Maleate) 100 Mg Tab 100 Mg PO BID Lamotrigine 200 Mg Tab 200 Mg PO HS Taopi Carbonate ER (Taopi Carbonate) 300 Mg Tab 300 Mg PO BID Lamictal (Lamotrigine) 100 Mg Tab 100 Mg PO DAILY Pravastatin 40 Mg Tab 40 Mg PO DAILY Fish Oil + D3 (Fish Oil-Cholecalciferol) 1,200-1,000 Mg-Unit Cap 1 Cap PO HS Metformin (Metformin HCl) 1,000 Mg Tab 1,000 Mg PO BIDPC With meals Synthroid (Levothyroxine Sodium) 50 Mcg Tab 50 Mcg PO DAILY Multiple Vitamin 1 Tab 1 Tab PO DAILY Review of Systems General / Constitutional: No: Fever Eyes: No: Visual changes HENT: No: Headaches Cardiovascular: No: Chest Pain or Discomfort Respiratory: No: Shortness of Breath Gastrointestinal: No: Abdominal Pain Genitourinary: No: Dysuria Musculoskeletal: No: Pain Skin: No Rash Neurologic: No: Weakness Psychiatric: Positive: Anxiety, Depression, Suicidal Ideations, No: Substance Abuse, Homicidal Ideation Endocrine: No: Polydipsia Hematologic/Lymphatic: No: Easy Bruising Physical Exam Narrative GENERAL: NAD SKIN: Focused skin assessment warm/dry. HEAD: Atraumatic. Normocephalic. EYES: Pupils equal and round. No scleral icterus. No injection or drainage. ENT: No nasal bleeding or discharge. Mucous membranes pink and moist. NECK: Trachea midline. No JVD. CARDIOVASCULAR: Regular rate and rhythm. No murmur appreciated. RESPIRATORY: No accessory muscle use. Clear to auscultation. Breath sounds equal bilaterally. GASTROINTESTINAL: Abdomen soft, non-tender, nondistended. Hepatic and splenic margins not palpable. MUSCULOSKELETAL: No obvious deformities. No clubbing. No cyanosis. No edema. NEUROLOGICAL: Awake and alert. No obvious cranial nerve deficits. Motor grossly within normal limits. Normal speech. PSYCHIATRIC: anxious and depressed mood and affect; insight and judgment normal. Data Data Last Documented VS Vital Signs Date Time Temp Pulse Resp B/P (MAP) Pulse Ox O2 Delivery O2 Flow Rate FiO2 02/11/17 21:06 98.6 97 18 137/86 (103) 99 Orders Orders Complete Blood Count With Diff (02/11/17 21:09) Comprehensive Metabolic Panel (02/11/17 21:09) Psych Screen (02/11/17 21:09) Drug Screen, Random Urine (02/11/17 21:09) Alcohol (Ethanol) (02/11/17 21:09) Salicylates (Aspirin) (02/11/17 21:09) Tylenol (Acetaminophen) (02/11/17 21:09) Lorazepam (Ativan) (02/11/17 22:00) Electrocardiogram (02/11/17 ) Potassium Chloride (Kcl) (02/11/17 23:00) Labs Laboratory Tests Test 02/11/17 21:20 02/11/17 21:30 Urine Opiates Screen NEG Urine Barbiturates Screen NEG Urine Amphetamines Screen NEG Urine Benzodiazepines Screen NEG Urine Cocaine Screen NEG Urine Cannabinoids Screen NEG White Blood Count 11.7 TH/MM3 Red Blood Count 5.91 MIL/MM3 Hemoglobin 16.5 GM/DL Hematocrit 50.2 % Mean Corpuscular Volume 84.9 FL Mean Corpuscular Hemoglobin 28.0 PG Mean Corpuscular Hemoglobin Concent 32.9 % Red Cell Distribution Width 13.9 % Platelet Count 410 TH/MM3 Mean Platelet Volume 7.4 FL Neutrophils (%) (Auto) 56.5 % Lymphocytes (%) (Auto) 29.5 % Monocytes (%) (Auto) 7.4 % Eosinophils (%) (Auto) 5.4 % Basophils (%) (Auto) 1.2 % Neutrophils # (Auto) 6.6 TH/MM3 Lymphocytes # (Auto) 3.5 TH/MM3 Monocytes # (Auto) 0.9 TH/MM3 Eosinophils # (Auto) 0.6 TH/MM3 Basophils # (Auto) 0.1 TH/MM3 CBC Comment DIFF FINAL Differential Comment Blood Urea Nitrogen 16 MG/DL Creatinine 1.17 MG/DL Random Glucose 93 MG/DL Total Protein 9.5 GM/DL Albumin 4.8 GM/DL Calcium Level 10.4 MG/DL Alkaline Phosphatase 107 U/L Aspartate Amino Transf (AST/SGOT) 63 U/L Alanine Aminotransferase (ALT/SGPT) 127 U/L Total Bilirubin 0.4 MG/DL Sodium Level 139 MEQ/L Potassium Level 3.3 MEQ/L Chloride Level 103 MEQ/L Carbon Dioxide Level 27.2 MEQ/L Anion Gap 9 MEQ/L Estimat Glomerular Filtration Rate 67 ML/MIN Salicylates Level LESS THAN 1.7 MG/DL Acetaminophen Level LESS THAN 2.0 MCG/ML Ethyl Alcohol Level LESS THAN 3 MG/DL MDM Medical Decision Making Medical Screen Exam Complete: Yes Emergency Medical Condition: Yes Medical Record Reviewed: Yes Interpretation(s) EKG at 2257: NSR at 97bpm, qt/qtc: 368/423, no acute changes Vital Signs Date Time Temp Pulse Resp B/P (MAP) Pulse Ox O2 Delivery O2 Flow Rate FiO2 02/11/17 21:06 98.6 97 18 137/86 (103) 99 Differential Diagnosis depression, anxiety, suicidal ideation Narrative Course 46 year old male who presents to ER under a Dixon act for evaluation of anxiety reaction with suicidal thoughts. Patient currently with no plans for suicide, he is here for help and is currently lucina for safety. Psychiatric screening labs were ordered, once cleared, will have him seen by psych screeners. Laboratory Tests Test 02/11/17 21:20 02/11/17 21:30 Urine Opiates Screen NEG (NEG) Urine Barbiturates Screen NEG (NEG) Urine Amphetamines Screen NEG (NEG) Urine Benzodiazepines Screen NEG (NEG) Urine Cocaine Screen NEG (NEG) Urine Cannabinoids Screen NEG (NEG) White Blood Count 11.7 TH/MM3 (4.0-11.0) Red Blood Count 5.91 MIL/MM3 (4.50-5.90) Hemoglobin 16.5 GM/DL (13.0-17.0) Hematocrit 50.2 % (39.0-51.0) Mean Corpuscular Volume 84.9 FL (80.0-100.0) Mean Corpuscular Hemoglobin 28.0 PG (27.0-34.0) Mean Corpuscular Hemoglobin Concent 32.9 % (32.0-36.0) Red Cell Distribution Width 13.9 % (11.6-17.2) Platelet Count 410 TH/MM3 (150-450) Mean Platelet Volume 7.4 FL (7.0-11.0) Neutrophils (%) (Auto) 56.5 % (16.0-70.0) Lymphocytes (%) (Auto) 29.5 % (9.0-44.0) Monocytes (%) (Auto) 7.4 % (0.0-8.0) Eosinophils (%) (Auto) 5.4 % (0.0-4.0) Basophils (%) (Auto) 1.2 % (0.0-2.0) Neutrophils # (Auto) 6.6 TH/MM3 (1.8-7.7) Lymphocytes # (Auto) 3.5 TH/MM3 (1.0-4.8) Monocytes # (Auto) 0.9 TH/MM3 (0-0.9) Eosinophils # (Auto) 0.6 TH/MM3 (0-0.4) Basophils # (Auto) 0.1 TH/MM3 (0-0.2) CBC Comment DIFF FINAL Differential Comment Blood Urea Nitrogen 16 MG/DL (7-18) Creatinine 1.17 MG/DL (0.60-1.30) Random Glucose 93 MG/DL (74-106) Total Protein 9.5 GM/DL (6.4-8.2) Albumin 4.8 GM/DL (3.4-5.0) Calcium Level 10.4 MG/DL (8.5-10.1) Alkaline Phosphatase 107 U/L (45-117) Aspartate Amino Transf (AST/SGOT) 63 U/L (15-37) Alanine Aminotransferase (ALT/SGPT) 127 U/L (12-78) Total Bilirubin 0.4 MG/DL (0.2-1.0) Sodium Level 139 MEQ/L (136-145) Potassium Level 3.3 MEQ/L (3.5-5.1) Chloride Level 103 MEQ/L (98-107) Carbon Dioxide Level 27.2 MEQ/L (21.0-32.0) Anion Gap 9 MEQ/L (5-15) Estimat Glomerular Filtration Rate 67 ML/MIN (>89) Salicylates Level LESS THAN 1.7 MG/DL Acetaminophen Level LESS THAN 2.0 MCG/ML Ethyl Alcohol Level LESS THAN 3 MG/DL (0-5) Diagnosis Primary Impression: Anxiety Additional Impressions: Depression Transaminitis Lizz Randolph DO Feb 11, 2017 21:16
[2017-02-11] MEDS ORDERED: LORazepam 1 MG TAB PO ONE (22:00)
[2017-02-11 22:09] LABS: AUTOMATED NEUTROPHIL # 6.6 TH/MM3 (1.8-7.7); BASOPHIL # 0.1 TH/MM3 (0-0.2); BASOPHIL % 1.2 % (0.0-2.0); EOSINOPHIL # 0.6 TH/MM3 (0-0.4); EOSINOPHIL % 5.4 % (0.0-4.0); HEMATOCRIT 50.2 % (39.0-51.0); HEMOGLOBIN 16.5 GM/DL (13.0-17.0); LYMPH % 29.5 % (9.0-44.0); LYMPHOCYTE # 3.5 TH/MM3 (1.0-4.8); MEAN CELL VOLUME 84.9 FL (80.0-100.0); MEAN CORPUSCULAR HGB CONC 32.9 % (32.0-36.0); MEAN PLATELET VOLUME 7.4 FL (7.0-11.0); MONO % 7.4 % (0.0-8.0); MONOCYTE # 0.9 TH/MM3 (0-0.9); NEUT % 56.5 % (16.0-70.0); PLATELET COUNT 410 TH/MM3 (150-450); RED BLOOD COUNT 5.91 MIL/MM3 (4.50-5.90); RED CELL DISTRIBUTION WIDTH 13.9 % (11.6-17.2); WHITE BLOOD COUNT 11.7 TH/MM3 (4.0-11.0)
[2017-02-11] MEDS ORDERED: LAMO200T PO (22:10)
[2017-02-11] MEDS ORDERED: LITH300T PO (22:10)
[2017-02-11] MEDS ORDERED: [UNRECOGNIZED DRUG - CODE] PO (22:15)
[2017-02-11] MEDS ORDERED: FLUV100T PO (22:15)
[2017-02-11] MEDS ORDERED: HYDR50CA PO (22:15)
[2017-02-11 22:30] LABS: ALBUMIN 4.8 GM/DL (3.4-5.0); ALKALINE PHOSPHATASE 107 U/L (45-117); ALT (GPT) 127 U/L (12-78); AST (GOT) 63 U/L (15-37); BICARBONATE 27.2 MEQ/L (21.0-32.0); BLOOD UREA NITROGEN 16 MG/DL (7-18); CALCIUM 10.4 MG/DL (8.5-10.1); CHLORIDE 103 MEQ/L (98-107); CREATININE 1.17 MG/DL (0.60-1.30); GLOMERULAR FILTRATION RATE 67 ML/MIN (>89); GLUCOSE,RANDOM 93 MG/DL (74-106); SODIUM (NA) 139 MEQ/L (136-145); TOTAL BILIRUBIN ADULT 0.4 MG/DL (0.2-1.0); TOTAL PROTEIN 9.5 GM/DL (6.4-8.2)
[2017-02-11 22:31] LABS: ACETAMINOPHEN LESS THAN 2.0 MCG/ML (10.0-30.0)
[2017-02-11] MEDS ORDERED: POTASSIUM CHLORIDE 10 MEQ CONTROLLED RELEASE TAB PO ONE (23:00)
[2017-02-11 23:41] VITALS: BP 118/78; PULSE 92; RESP 18; O2SAT 99
[2017-02-12 01:24] VITALS: BP 129/79; PULSE 92; RESP 17; TEMP 98.7; O2SAT 97
[2017-02-12 06:47] VITALS: BP 124/71; PULSE 87; RESP 17; TEMP 97.6; O2SAT 99
[2017-02-12 09:28] VITALS: BP 129/66; PULSE 79; RESP 18; O2SAT 98
--- NOTE | 2017-02-12 13:13 | EKG ---
Date Performed: 02/11/2017 Time Performed: 22:57:01 PTAGE: 46 years EKG: Sinus rhythm INFERIOR MYOCARDIAL INFARCTION ABNORMAL ECG PREVIOUS TRACING : 08/17/2016 15.35 Compared to prior tracing no significant change DOCTOR: Rubin Koo Interpretating Date/Time 02/12/2017 13:12:51
[2017-02-12 16:56] VITALS: BP 129/66; PULSE 79; RESP 18; O2SAT 98
== END 2017-02-12 17:02 ==
LOC: NEPD 20:49 → NEPJ 02-12 17:02
DX: F41.9 Anxiety disorder, unspecified (principal); F31.9 Bipolar disorder, unspecified; R74.0 Nonspecific elevation of levels of transaminase and lactic acid dehydrogenase [LDH]; E11.9 Type 2 diabetes mellitus without complications; Z79.84 Long term (current) use of oral hypoglycemic drugs; Z79.899 Other long term (current) drug therapy
CPT/HCPCS: 80053; 80307; 85025; 93005; 99285